=== PATIENT | female | born 1980 | race Caucasian/White ===

== ENCOUNTER → 2018-01-06 10:16 | Outpatient (CLI) | payer OTHER, SELFPAY ==
[2018-01-07 09:29] LABS: Vitamin D,25 Hydroxy 28.3 ng/mL (29.95-100.01)
[2018-01-09 09:30] LABS: HPV Reflexed? NOT INDICATED
== END ==
PROVIDERS: Visit Provider Obstetrics & Gynecology
DX: E55.9 Vitamin D deficiency, unspecified (principal); Z12.4 Encounter for screening for malignant neoplasm of cervix; Z12.72 Encounter for screening for malignant neoplasm of vagina
CPT/HCPCS: 36415; 82306; 88175; G0145

== ENCOUNTER → 2018-04-06 11:29 | Outpatient (CLI) | payer OTHER, SELFPAY ==
[2018-04-06 13:25] LABS: Vitamin D,25 Hydroxy 37.9 ng/mL (29.95-100.01)
== END ==
PROVIDERS: Visit Provider Obstetrics & Gynecology
DX: E55.9 Vitamin D deficiency, unspecified (principal)
CPT/HCPCS: 36415; 82306

== ENCOUNTER → 2019-01-06 | Outpatient (CLI) | payer OTHER, SELFPAY ==
[2017-07-29 15:21] VITALS: BMI 38.9
[2019-01-06 14:32] LABS: Chlamydia Trachomatis by PCR Negative (Negative); Neisserai gonorrhoeae by PCR Negative (Negative); Probe Check PASS; Sample Adequacy Control PASS; Specimen Processing Control PASS
== END | disposition home or self-care (01) ==
LOC: LABSPEC 11:53
PROVIDERS: Visit Provider Obstetrics & Gynecology
DX: Z32.01 Encounter for pregnancy test, result positive (principal); Z11.3 Encounter for screening for infections with a predominantly sexual mode of transmission
CPT/HCPCS: 87491; 87591

== ENCOUNTER → 2019-01-21 | Outpatient (CLI) | payer OTHER, SELFPAY ==
[2017-07-29 15:21] VITALS: BMI 38.9
[2019-01-21 12:25] LABS: Color, Urine Yellow (Yellow); Glucose, Dipstick Normal (Normal); Ketone-Dipstick 5 mg/dl (Negative); Leukocyte Esterase-Dipstick 500 /ul (Negative); Nitrite-Dipstick Positive (Negative); Occult Blood-Urine 10 /ul (Negative); Protein-Dipstick 15 mg/dl (Negative); Specific Gravity, Urine 1.025 (1.002-1.030); Urine Bilirubin Dipstick Negative (Negative); Urine Clarity Clear (Clear); Urine Urobilinogen Normal (Normal)
[2019-01-21 12:46] LABS: Absolute Lymphocyte Count 1.97 X10^3/ul (0.83-4.51); Absolute Neutrophil Count 6.9 X10^3/uL (2.0-7.7); Basophil# 0.03 X10^3/uL; Basophil% 0.3 % (0-1); Hematocrit 34.9 % (37-47); Hemoglobin 10.8 g/dl (12.0-15.0); Lymphocyte # 1.97 X10^3/ul (4.0); Lymphocyte % 20.2 % (19-41); Mean Corp Hgb Conc 30.9 g/gl (32-36); Mean Corpuscular Hgb 21.2 pg (27.0-32.0); Mean Corpuscular Volume 68.6 fL (81-99); Mean Platelet Vol. 10.7 fl (6.2-12.0); Monocyte# 0.67 X10^3/uL; Monocyte% 6.9 % (0-10); Neutrophil # 6.94 X10^3/uL (2.7-7.7); Neutrophil % 71.3 % (47-70); Platelet Count 304 K/mm3 (150-450); RBC Distribution Width CV 16.4 % (11.6-14.6); Red Blood Count 5.09 M/mm3 (4.2-5.4); White Blood Count 9.7 K/mm3 (4.4-11.0)
[2019-01-21 12:48] LABS: Differential Indicated SCAN CRITERIA MET; POSITIVE COUNT YES; POSITIVE DIFFERENTIAL NO; POSITIVE MORPHOLOGY YES
[2019-01-21 13:00] LABS: Thyroid Stim Hormone (TSH) 2.12 uIU/mL (0.358-3.74)
[2019-01-21 13:02] LABS: Amphetamine Urine VISTA NEGATIVE (<1000 ng/mL); Barbiturate Urine VISTA NEGATIVE (< 200 ng/mL); Benzodiazepine Urine VISTA NEGATIVE (< 200 ng/mL); Cocaine Urine VISTA NEGATIVE (< 300 ng/mL); Ecstacy Urine VISTA NEGATIVE (< 500 ng/mL); Methadone Urine VISTA NEGATIVE (< 300 ng/mL); PCP Urine VISTA NEGATIVE (< 25 ng/mL); THC Urine VISTA NEGATIVE (< 50 ng/mL); Vista UDS pH Range 5
[2019-01-21 13:09] LABS: COTININE Drug Screen Negative (<200 ng/mL)
[2019-01-21 13:31] LABS: Hypochromasia 1+; Microcytosis 2+
[2019-01-21 13:42] LABS: HIV - WCH Non-Reactive (Nonreactive); Rubella IgG > 500.0 IU/mL
[2019-01-22 01:45] LABS: Prenatal RPR NONREACTIVE (NONREACTIVE)
[2019-01-22 12:25] LABS: HEPATITIS B SURFACE AG Negative (Negative); Hep C Antibodies <0.1 s/co ratio (0.0-0.9)
== END | disposition home or self-care (01) ==
LOC: WOBLAB 11:11
PROVIDERS: Visit Provider Obstetrics & Gynecology
DX: Z34.81 Encounter for supervision of other normal pregnancy, first trimester (principal)
CPT/HCPCS: 36415; 80307; 81002; 84443; 85025; 86703; 86762; 86803; 87340

== ENCOUNTER 2019-01-23 10:26 | Emergency (ER) | payer OTHER, SELFPAY ==
[2019-01-23 10:27] VITALS: BP 138/73; PULSE 76; RESP 16; TEMP 36.7; O2SAT 97; BMI 38.4
--- NOTE | 2019-01-23 10:44 | VDLE_ITS ---
Reason For Study: RLE PAIN (CRAMPS) RIGHT GSV is normal. CFV is compressible, spontaneous, phasic, competent and demonstrates normal augmentation. FV is compressible, spontaneous, phasic, competent and demonstrates normal augmentation. POP V is compressible, spontaneous, phasic, competent and demonstrates normal augmentation. T/P Trunk is compressible. PTV is compressible. RT PerV is compressible. Procedure Exam performed portable in ED. The exam was diagnostic. A preliminary report was called and/or faxed to ED. Interpretation Summary Deep veins of the right lower extremity are patent and compressible segmentally. There is no evidence of right lower extremity deep vein thrombosis. Valvular competence appears intact within the proximal deep venous system on the right . The right greater saphenous vein appears patent and compressible segmentally. Ordering Physician: Luz Harman Referring Physician: NO PCP Performed By: Brenda Valentin, GISELE, RVT
--- NOTE | 2019-01-23 10:46 | ED.VISSUMM ---
- ER Visit Summary Date of Service: 01/23/19 Chief Complaint: Right leg cramps History of Present Illness: The patient is a 38 F presenting with right leg cramping. Patient states this started yesterday. She states she did wear shoes that were too big and she was trying to keep them on her feet all day. She does not believe this caused her symptoms. She denies any direct injury. No recent travel. No personal history of DVT. She does have a family history of an aunt having a DVT in the past. She is 8 weeks . Denies vaginal bleeding or abdominal pain. Denies chest pain or shortness of breath. Denies other complaints. Physical Examination: Vitals are stable. Patient is afebrile. Alert no acute distress. HEENT exam is unremarkable. Neck is supple. Lungs are clear and equal bilaterally. Heart is regular rate and rhythm. Abdomen is soft nontender nondistended. Extremities right calf tenderness. No swelling. No erythema or warmth. Normal distal pulses. Skin is warm and dry. No focal neurologic deficit. Remainder of exam is unremarkable. Emergency Department Course and Treatment: Venous Doppler right lower extremity shows no evidence of DVT. Patient was given Tylenol. 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 Advised return to ED if worsening complaints. Disposition: Discharge home Impression: Right leg cramp This note was generated with [employer] dictation software. It may contain incorrect words, spelling, and punctuation that were not noted in review of the chart prior to signing ED Disposition - Plan for ED Patient: Instructions: ED Muscle Pain Leg Cramps Referrals: Lon Howard MD [Primary Care Provider] -
[2019-01-23] MEDS: Acetaminophen 500 MG Tablet 1000 MG PO (11:08)
--- NOTE | 2019-01-23 12:37 | ED.DEP ---
ED Disposition - Plan for ED Patient: Instructions: ED Muscle Pain Leg Cramps Referrals: Lon Howard MD [Primary Care Provider] -
[2019-01-23 13:01] VITALS: BP 125/71; PULSE 67; RESP 18
== END 2019-01-23 13:03 | disposition home or self-care (01) ==
LOC: ED 11:22
PROVIDERS: Emergency Provider Emergency Medicine; Family Provider Obstetrics & Gynecology; PCP Obstetrics & Gynecology
DX: O26.891 Other specified pregnancy related conditions, first trimester (principal); R25.2 Cramp and spasm; M79.661 Pain in right lower leg; K21.9 Gastro-esophageal reflux disease without esophagitis; Z3A.08 8 weeks gestation of pregnancy; Z79.899 Other long term (current) drug therapy
CPT/HCPCS: 93971; 99282

== ENCOUNTER → 2019-06-16 | Outpatient (CLI) | payer OTHER, SELFPAY ==
[2019-06-16 10:53] LABS: Hematocrit 35.1 % (37-47); Hemoglobin 11.2 g/dL (12.0-15.0); Mean Corp Hgb Conc 31.9 g/dL (32-36); Mean Corpuscular Hgb 26.8 pg (27.0-32.0); Mean Platelet Vol. 9.5 fl (6.2-12.0); Platelet Count 173 K/mm3 (150-450); RBC Distribution Width CV 15.9 % (11.6-14.6); RBC Distribution Width SD 48.5 fl (35.1-43.9); Red Blood Count 4.18 M/mm3 (4.2-5.4); White Blood Count 8.2 K/mm3 (4.4-11.0)
[2019-06-16 10:54] LABS: Glucose Challenge Gest 1H 50g 96 mg/dL (70-140)
== END | disposition home or self-care (01) ==
LOC: WOBLAB 09:56
PROVIDERS: Visit Provider Advanced Practice Midwife
DX: Z34.83 Encounter for supervision of other normal pregnancy, third trimester (principal)
CPT/HCPCS: 36415; 82950; 85027

== ENCOUNTER 2019-08-30 05:35 | Inpatient (IN) | payer OTHER, SELFPAY ==
--- NOTE | 2019-08-29 18:46 | HP.PCM_ITS ---
History and Physical Date of Admission: 08/30/19 ACOG ANTEPARTUM RECORD - HISTORY AND PHYSICAL (08/29/2019) Name: GRANT HOFFMAN History of this : 38 yo [id number] presents at 39 weeks gestation for a repeat and tubal after 3 prior C-sections. OB Physician: RUTH 's Physician: Dr. Kalpana Fisher ...................................................................... : 1980 Age: 38 [address]: [address] [place] [address] Phone: (h) [phone] Insurance Carrier: [employer] [id number] Emergency Contact: CHARAN HOFFMAN [phone] ...................................................................... Final LESLI: 09/05/19 By Ultrasound: 11 weeks 3 days PARITY: (G-Total Pregnancies P-Fullterm,Premature,Induced AB,Spont AB, Ectopics, Multiple,Living) LESLI CONFIRMATION: By LMP: 11/29/18 Initial Exam: 09/05/19 By First Ultrasound Exam: 09/05/19 Final LESLI: 09/05/19 OB PROBLEM LIST: AMA ANEMIC Hgb 10.8 g/dl at NOB labs. Recommend ferrous sulfate 325 mg po bid. Heartburn, taking Omeprazole MSAFP and CF testing declined. cfDNA testing declined. Prior C/S x 3, plans repeat C/S STERILIZATION REQUEST Reviewed R,B,A, permanence Plan for BPS UTI at NOB labs + Nit + LE RX Keflex 500 mg po bid for 7 d ALLERGIES: No Known Allergies MEDICATIONS: ferrous sulfate 325 mg (65 mg iron) tablet daily omeprazole 20 mg capsule,delayed release daily Formula 28 mg iron-800 mcg tablet daily SOCIAL HISTORY: Smoking - Never Alcohol Use - denies drinking Diet - balanced Diet Lifestyle - low stress lifestyle and Exercise - minimal Employer - Home Job Description - Illicit Drug Use - denies use of street drugs Sexual Activity - Residence - Lives w/ and children Place of - [place], [place] Spouse-Sig Other Name - Charan Hoffman Spouse-Sig Other Occupation - director inbound sales [employer] Spouse-Sig Other Phone No - [phone] Children Name(s) - Cecelia Romero(Dr Agosto), Iman Renee (Dr Howard) PRIOR DELIVERY HISTORY DEL DATE GEST LAB WT LB WT OZ TYPE ANES LABOR TX Sep 06 6 0 0 0 Sab None No Mar 01 40 0 8 7 C-Sec Spinal No Aug 10 39 0 6 15 C-Sec Spinal No Feb 25 41 20 7 6 C-Sec Spinal No ANTEPARTUM FLOW CHART VISIT GE RTC FU F F MO U U DATE WK MD WKS HT PN HR M SS BP ED WT MO GL D EF ST __ ____ ___ __ __ ___ __ __ __ ___ __ __ __ ___ __ 02 Aug JMW 3 38 + + 122/72 sl 229 tr - Jul JMW 1 37 + + 130/80 sl 226 tr - Jul JMW 1 38 + + 132/72 sl 229 tr - Jul JMW 2 34 + + 136/82 sl 225 tr - Jun ELB 2 32 - + + 110/64 sl 224 tr - Jul 24 KW 2 30 + + 100/70 0 221 - - Jun 21 KW 2 29 + + 120/62 0 221 - - May 18 ELB 3 25 - + + 106/68 tr 217 - - Apr 13 ELB 4 - - U+ + 120/74 sl 216 tr - Mar 09 ELB 4 - - + + 120/70 0 211 - - Feb 02 DS 4 12 ? + O 128/64 0 211 30 December 29 JMW 4 on 104/70 210 - no ANTEPARTUM NOTE(S): Aug 26 2019: Pre-op forms signed for R/C-S, Good FM Aug 19 2019: feeling well. Cxs on and off. Aug 12 2019: Ctxs-occas, Good FM Jul 28 2019: Ctxs-occas, Good FM Jul 14 2019: feeling well. Jun 30 2019: feeling well. Jun 16 2019: feeling well. Glucola drawn today. May 21 2019: Apr 23 2019: comp u/s today, heartburn and on Omeprazole Mar 22 2019: feeling well. Feb 18 2019: see note Jan 21 2019: US OK COMPREHENSIVE ANTEPARTUM NOTE(S): Jun 30 2019: Feeling well; reports active FM; denies UCs, VB, LOF; having some back discomfort when rising in AM, discussed stretching exercises to help; concerned about no weight gain over last two visits, diet review good, discussed normal weight gain for her BMI and diet management; reviewed 1 hour glucose screening results; discussed warning signs, s/s PTL; RTO 2 weeks for PNV - KVW Jun 16 2019: Feeling well; reports active FM; denies UCs, VB, LOF; 1 hour Glucola and bloodwork drawn today; discussed warning signs, s/s PTL; RTO 2 weeks for PNV - KVW Jun 16 2019: Glucola 96 hgb 11.2 g/dl. EB May 21 2019: Glucola given UA neg for infection. Sp Gr 1.010 Reviewed s/sx of yeast, UTIs. Recommend maternity support belt for comfort. Encouraged tdaP and flu vaccine. EB May 21 2019: Grant gave clean catch midstream urine and long dip done. Entirely WNL with pH 6.5 and sg 1.010. States increased urinary frequency with pressure recently. Baby active. Minimal edema. Has multiple red raised ch on feet and ankles- mosquito bites and flea bites from her cats. GEORGETTE. Apr 23 2019: Grant is here with her for visit. Asking about when can get C/S scheduled. Usually at around 28 weeks. This can be scheduled at 1 week prior to EDC, likely 08/30/19. Plans sterilization with this C/S. This is a boy and they have 3 girls at home. She relates takes Fe daily for anemia and Omeprazole for heartburn. She can resume Vit D supplementation in winter months as she has been low before. LMT Apr 23 2019: 20 wk sono today: 54% pct Sex: Male 99% K EB Feb 18 2019: Grant is feeling much better in the past week re: nausea and less tired. Voicing no concerns. Feb 18 2019: Feeling well. No bleeding. labs normal. Declines cfDNA screening. Jan 21 2019: Grant is here for her NOB visit at 7 w 4 d, she is a A1 L3 with an LESLI of 09/05/2019. She and her , Charan, have three daughters at home. All of her girls were delivered by C/S, and she plans a R C/S at [facility], and will breastfeed. Past history updated. Office practice patterns reviewed, including labs that will be collected today. She will see Dr. Scott for a PNV after NOB visit. Grant states that she has experienced a little nausea, but as long as she eats often, and drinks plenty of water she does well and can manage the nausea. Reports that she has vomited once. Encouarged protein in her diet throughout the day and at least one gallon of water per 24 hrs. Emergencies/danger signs to report, round ligament pain, reporting s/s of a UTI, and common OTC medications approved/not approved for use during reviewed. She is a life long non-smoker, and denies use of drugs or ETOH. Genetic Screening form completed, BRYON is of note. She declines MSAFP and CF testing, consent signed as such. cfDNA testing offered and she declined. Grant takes an OTC vitamin and states that she tolerates this well. She states that she and her family eat generally well balanced, clean foods, and that she drinks a lot of water. Reviewed caloric needs, recommended weight agin, limiting empty calories, and limiting caffeine to one cup a day. Printed guide for food safety during provided with review. Grant walks and does yard work several times a week. Lifting restrictions reviewed. Kegel exercises discussed. Grant states that she understands all information provided during NOB visit, and she has no questions following same. AW New January 21 2019: O positive RI. Hgb 10.8 g/dl. IRON SUPPLEMENT recommended. EB Jan 06 2019: Grant is a 38 yr old Gr 5, P3, SAB 1 here for Missed Menses. Hx regular monthly periods; LMP 11/29/18 which would make her 5 wks 3 days, LESLI 09/05/19. She is . No spotting, No bleeding. GC/Chlamydia cultures obtained. No pap today. Using a topical steroid cream between her fingers for poison toni. Taking a daily vitamin, Vit D. Hx C/S x 3. informational materials given and reviewed otc meds ok to take. NO NSAIDS. kbm REVIEW OF SYSTEMS: GENERAL - Denies fever, or chills SKIN - Denies rash, new skin lesions, or change in moles EYES - Denies blurred vision, or change in visual acuity EARS - Denies ear pain, or difficulty hearing NOSE - Denies nasal congestion, discharge, or bleeding MOUTH - Denies sore throat, or difficulty swallowing NECK - Denies pain or swelling RESPIRATORY - Denies shortness of breath, cough, wheezing CARDIOVASCULAR - Denies palpitations, chest pain, orthopnea, PND, peripheral edema, syncope or claudication GASTROINTESTINAL - Denies nausea, vomiting, diarrhea, constipation, Denies abdominal pain, melena and or bright red blood GENITOURINARY - Denies dysuria, frequency of urination, urgency, or hesitancy MUSCULOSKELETAL - Denies joint or muscle pain, or back pain NEUROLOGICAL - Denies localized numbness, weakness, or tingling PSYCHIATRIC - Denies depression, anxiety, substance abuse or suicide attempts ENDOCRINE - Denies heat or cold intolerance, weight loss or gain, increasing thirst HEMATO-IMMUNOLOGIC - Denies easy bruising, bleeding, oral ulcerations or recurrent infections GENETICS SCREENING: Age 35+ years: Yes Thalassemia: No Neural Tube Defect: No Down Syndrome: No SERENITY-SACHS: No Sickle Cell Disease: No Hemophilia: No Musc. Dystrophy: No Cystic Fibrosis: No-declines screening Rosa Chorea: No Mental Retardation: No Fragile X: No Other genetic: No Other defects: No SABs/still births: No Drugs since LMP: No INFECTION HISTORY: High risk AIDS: No High risk Hepatitis: No Exposed to TB: No Exposed to Herpes: No Rash/viral illness since LMP: No History of STD: No MENSTRUAL HISTORY: *Menses Amount/Duration: 7 daysMenses Regularity: Regular* PAST SUMMARY: PARITY: 1. Total Pregnancies............ 5 2. Full Term Pregnancies........ 3 3. Premature.................... 0 4. Abortions - Induced.......... 0 5. Abortions - Spontaneous...... 1 6. Ectopics..................... 0 7. Multiple Births.............. 0 8. Living Children.............. 3 PAST #1: Date of :.................. 03/14/04 Gestation Weeks:................ 41 Length of labor(hours):......... 20 Sex:............................ F Weight-lbs:............... 7 Weight-oz:................ 6 Type of Delivery:............... C-Sect Type of Anesthesia:............. Spinal Place of Delivery:.............. [place] Treatment of Labor?:.... No Comment: IOL, ABRUPTION PAST #2: Date of :.................. 02/24/08 Gestation Weeks:................ 40 Length of labor(hours):......... 0 Sex:............................ F Weight-lbs:............... 8 Weight-oz:................ 7 Type of Delivery:............... C-Sect Type of Anesthesia:............. Spinal Place of Delivery:.............. [place] Treatment of Labor?:.... No Comment: PAST #3: Date of :.................. 08/25/12 Gestation Weeks:................ 6 Length of labor(hours):......... 0 Sex:............................ Weight-lbs:............... 0 Weight-oz:................ 0 Type of Delivery:............... Sab Type of Anesthesia:............. None Place of Delivery:.............. none Treatment of Labor?:.... No Comment: DATE APPROX, NO D+C PAST #4: Date of :.................. 08/05/17 Gestation Weeks:................ 39 Length of labor(hours):......... 0 Sex:............................ F Weight-lbs:............... 6 Weight-oz:................ 15 Type of Delivery:............... C-Sect Type of Anesthesia:............. Spinal Place of Delivery:.............. [place] Treatment of Labor?:.... No Comment: PHYSICAL EXAMINATION General Appearence: 38 yo female in no acute distress Vital Signs: AF, VSS Heart: RRR without rubs or gallops Lungs: CTA x 2 Breasts: deferred Abdomen: gravid Pelvis: Cervix: not examined Presentation: cephalic Station: not examined Fetus: Size: AGA Movement: present Heart: present Labs for : GRANT HOFFMAN since 12/09/2018 ORDER DATEIN DESCRIPTION VALUE UNITS RANGE A+ COMMENT GLUCOSE CHALLENGE GEST 1H 50G 06/16/19 NOTE Original Ordering Provider: MAY Bell GLU GEST 50G 1H 96 mg/dL 70-140 CBC-COMPLETE BLOOD CNT NO DIFF 06/16/19 NOTE Original Ordering Provider: MAY Bell WBC 8.2 K/mm3 4.4-11.0 RBC 4.18 M/mm3 4.2-5.4 L HGB 11.2 g/dL 12.0-15.0 L w HCT 35.1 % 37-47 L MCV 84.0 fL 81-99 MCH 26.8 pg 27.0-32.0 L MCHC 31.9 g/dL 32-36 L RDW CV 15.9 % 11.6-14.6 H RDW SD 48.5 fl 35.1-43.9 H PLT 173 K/mm3 150-450 MPV 9.5 fl 6.2-12.0 Reviewed by SALENA huertas HEPATITIS C ANTIBODIES 01/21/19 NOTE Original Ordering Provider: Meet Howard HEP C AB <0.1 s/co ratio 0.0-0.9 Negative: < 0.8 Indeterminate: 0.8 - 0.9 Positive: > 0.9 The CDC recommends that a positive HCV antibody result be followed up with a HCV Nucleic Acid Amplification test (911901). Reviewed by SALENA HEPATITIS B SURFACE AG 01/21/19 NOTE Original Ordering Provider: Meet Howard HB SURF AG Negative Negative Performed at: [address] [id number] Museum Tour Guide: Yovani Reese PhD, Phone: [phone] Reviewed by SALENA RPR 01/21/19 NOTE Original Ordering Provider: Meet Howard RPR NONREACTIVE NONREACTIVE Reviewed by SALENA HIV - [facility] 01/21/19 NOTE Original Ordering Provider: Meet Howard HIV - [facility] Non-Reactive Nonreactive Reviewed by SALENA RUBELLA IGG 01/21/19 NOTE Original Ordering Provider: Meet Howard RUBELLA IGG > 500.0 IU/mL Antibody results Interpretation of Immune Status < 5 IU/ml Presumed Non-immune 5 - < 10 IU/ml Equivocal > or = 10 IU/ml Presumed Immune Reviewed by SALENA T AND S-NO CHARGE W/PNP 01/21/19 Reason for Type AND Screen/Red Cells: Surgery? [facility]~[address] [place], [address]~ BLOOD TYPE GEL O POSITIVE N AB SCREEN GEL NEGATIVE N Reviewed by SALENA CBC W/DIFF, AUTOMATED 01/21/19 NOTE Original Ordering Provider: Meet Howard WBC 9.7 K/mm3 4.4-11.0 RBC 5.09 M/mm3 4.2-5.4 HGB 10.8 g/dl 12.0-15.0 L HCT 34.9 % 37-47 L MCV 68.6 fL 81-99 L MCH 21.2 pg 27.0-32.0 L MCHC 30.9 g/gl 32-36 L RDW CV 16.4 % 11.6-14.6 H RDW SD 40.0 fl 35.1-43.9 PLT 304 K/mm3 150-450 MPV 10.7 fl 6.2-12.0 NEUT% 71.3 % 47-70 H LY% 20.2 % 19-41 MONO% 6.9 % 0-10 EO% 1.0 % 0-5 BASO% 0.3 % 0-1 IM GRAN % 0.300 % 0.0-0.9 IG% - Immature Granulocytes (promyelocytes, myelocytes and metamyelocytes) > 1% indicates that a LEFT SHIFT is Present. ABSOLUTE NEUT 6.9 X10 3/uL 2.0-7.7 ABSOLUTE LYMPH 1.97 X10 3/ul 0.83-4.51 HYPOCHROMASIA 1+ MICROCYTES 2+ Reviewed by SALENA NICOTINE URINE DRUG SCREEN 01/21/19 NOTE Original Ordering Provider: Meet Howard TO BE CONFIRMED CONFIRMATORY TESTING FOR ALL POSITIVE URINE DRUG SCREEN RESULTS WILL ONLY BE SENT OUT UPON PHYSICIAN ORDER. The results of Urine Drug Screen methods provide only preliminary analytical test results. A more specific alternate chemical method must be used in order to obtain a confirmed analytical result. Gas chromatography/mass spectrometery (GC/MS) is the preferred confirmatory method. Clinical consideration and professional judgement should be applied to any drug of abuse test result, particularly when preliminary positive results are used. COT DRG SCREEN Negative <200 ng/mL Cotinine is the first-stage metabolite of Nicotine. Reviewed by SALENA URINE DRUG SCREEN (VISTA) 01/21/19 NOTE Original Ordering Provider: Meet Howard TO BE CONFIRMED CONFIRMATORY TESTING FOR ALL POSITIVE URINE DRUG SCREEN RESULTS WILL ONLY BE SENT OUT UPON PHYSICIAN ORDER. VISTA Urine Drug Screen methods provide only preliminary analytical test results. A more specific alternate chemical method must be used in order to obtain a confirmed analytical result. Gas chromatography/mass spectrometery (GC/MS) is the preferred confirmatory method. Clinical consideration and professional judgement should be applied to any drug of abuse test result, particularly when preliminary positive results are used. URINE TCA TESTING MUST BE ORDERED SEPARATELY. USE TEST MNEMONIC: [place] [facility] UDS PH 5 AMPHETAMINES NEGATIVE <1000 ng/mL BARBITIURATES NEGATIVE < 200 ng/mL BENZODIAZIPINE NEGATIVE < 200 ng/mL COCAINE NEGATIVE < 300 ng/mL ECSTACY NEGATIVE < 500 ng/mL METHADONE NEGATIVE < 300 ng/mL OPIATES NEGATIVE < 300 ng/mL PCP NEGATIVE < 25 ng/mL THC NEGATIVE < 50 ng/mL Reviewed by SALENA THYROID STIM HORMONE (TSH) 01/21/19 NOTE Original Ordering Provider: Meet Howard TSH 2.12 uIU/mL 0.358-3.74 Reviewed by SALENA URINALYSIS, ROUTINE (DIPSTICK) 01/21/19 NOTE Original Ordering Provider: Meet Howard COLOR Yellow Yellow CLARITY Clear Clear GLUCOSE, UR Normal mg/dl Normal BILIRUBIN URINE Negative mg/dL Negative KETONE UR 5 mg/dl Negative H SP.GR. DIPSTX 1.025 1.002-1.030 PH UR 6.0 5.0 - 8.0 PROT DIPSTX 15 mg/dl Negative H UROBILI Normal mg/dl Normal NITRITE UR Positive Negative H OCCULT BLOOD-UR 10 /ul Negative H LEUK ESTERASE 500 /ul Negative H Reviewed by SALENA MOORE/JUDY [facility] BY PCR 01/06/19 NOTE Original Ordering Provider: Meet Howard [facility] PCR Negative Negative NG BY PCR Negative Negative Reviewed by MEET Impression /Plan: 39 week intrauterine for repeat and tubal. Discussed RBAs and all questions answered. Preparations in progress for delivery.
[2019-08-30] VITALS (18 sets, daily range): BP systolic 95–134; BP diastolic 50–72; PULSE 61–92; RESP 16–18; TEMP 36.3–37.2; O2SAT 96–100; BMI 42.0
--- NOTE | 2019-08-30 | IMM_PTH ---
PATIENT: GRANT HOFFMAN LOC: WP U#:[id number] AGE/SX: 38/F ROOM: WP007 RE08/30/[address]: Dr. Tacos Scott MD : 1980 BED: 1 DIS: 09/01/2019 SPEC #: [id number] RECD: 08/31/19 12:50 STATUS: MARGA REFrances #: [id number] JANKI: 08/30/19 00:[address]: Tacos Scott DEPT: IMMUNOHISTOCHEMISTRY RECD BY: Nicole Coughlin Tissues: Uterus, NOS Procedures: Markel Ret (add) CEA (add) CK5-6 (add) COSTA (add) Vimentin (add) Pankeratin (initial) PHYSICIAN & INSTITUTION [place] [id number] SPECIMEN INFORMATION: Tissue Source: Uterine cysts Clinical Info: Inflammatory uterine cysts Specimen Number: [id number] #1 CPT code: 08561, 00205 x5 METHODOLOGY: Deparaffinized sections of prefer/formalin-fixed tissue or PAP/DQ stained slides are incubated with monoclonal/polyclonal antibodies/oligonucleotide probes. Localization is made via biotin free immunoperoxidase method. Appropriate controls are performed and reacted as expected. Results on target cell population are indicated in the following table: RESULTS: ANTIBODY / CLONE RESULT Block 1 AE1-3 (AE1/AE3/PCK26) positive Vimentin (V9) negative CALRET (polyclonal) positive CK5-6 (D5 & 1684) positive COSTA (E29) positive CEA (11-7/TF-3HB-1) negative These tests were developed and their performance characteristics determined by [facility]. They may not have been cleared or approved by the U.S. Food and Drug Administration. The FDA has determined that such clearance or approval is not necessary. The above immunohistochemical/dualISH markers are ordered and reviewed by the Pathologist. INTERPRETATION: Uterine cysts, excision: Consistent with benign mesothelial inclusion cyst. AM:raisa 09/01/19
[2019-08-30] MEDS: Lactated Ringers 1,000 ML 999 ML IV (06:00)
[2019-08-30 06:28] LABS: Absolute Lymphocyte Count 2.18 X10^3/uL (0.83-4.51); Absolute Neutrophil Count 6.1 X10^3/uL (2.0-7.7); Basophil# 0.04 X10^3/uL; Basophil% 0.4 % (0-1); Eosinophil# 0.12 X10^3/uL; Eosinophils% 1.3 % (0-5); Hematocrit 34.1 % (37-47); Hemoglobin 11.3 g/dL (12.0-15.0); Lymphocyte # 2.18 X10^3/ul (4.0); Lymphocyte % 23.8 % (19-41); Mean Corp Hgb Conc 33.1 g/dL (32-36); Mean Corpuscular Hgb 26.7 pg (27.0-32.0); Mean Corpuscular Volume 80.6 fL (81-99); Mean Platelet Vol. 10.2 fl (6.2-12.0); Monocyte# 0.67 X10^3/uL; Monocyte% 7.3 % (0-10); NRBC Flagged by Analyzer 0 % (0-5); Neutrophil # 6.08 X10^3/uL (2.7-7.7); Neutrophil % 66.3 % (47-70); Platelet Count 184 K/mm3 (150-450); RBC Distribution Width CV 14.6 % (11.6-14.6); RBC Distribution Width SD 42.2 fl (35.1-43.9); Red Blood Count 4.23 M/mm3 (4.2-5.4); White Blood Count 9.2 K/mm3 (4.4-11.0)
[2019-08-30] MEDS: Sodium Citrate/Citric Acid 30 ML UDC PO (06:59)
[2019-08-30] MEDS: Lactated Ringers 1,000 ML 150 ML IV (07:01)
[2019-08-30] MEDS: Cefazolin 2 GM in 0.9% Normal Saline 100 ML IV (07:19)
--- NOTE | 2019-08-30 07:24 | PCM.OPRPT ---
Delivery Classification: Scheduled Final LESLI: 09/05/19 Final LESLI Source: US <20 weeks Gestational age: 39 Weeks and 1 Days classified advertising manager: Roberta Garibay Type of Anesthesia:: Spinal - With Duramorph Implants Used: None Date of Procedure: 08/30/19 Pre-Operative Diagnosis: Prior Section, Desires Permanent Sterilization Post-Operative Diagnosis: Prior Section, Desires Permanent Sterilization, Inflammatory Cysts Indications: Prior Section and Desires Permanent Sterilization Description of Procedure: Surgeon: Tacos Scott MD, FACOG Anesthesia: Naomi Del Castillo CRNA Procedure: Repeat Low Transverse Cervical Caesarean Section, Bilateral Tubal Occlusion with Filshie Clips, Excision of Ovarian Inflammatory Cysts Indication: This is a 38-year-old who presents for her fourth at 39+ weeks gestation. care has otherwise been uneventful. The patient has been counseled regarding the risk and indications of this procedure including the possibility of bleeding infection and injury to surrounding structures such as bowel bladder. She also desires permanent sterilization and has considered this form of control for quite some time. She has been counseled regarding the permanent nature of the procedure, the failure rate of 1 to 2%, and the availability of other nonpermanent control options. All questions were answered. Procedure: Patient was taken to the operating room where after spinal anesthesia was placed, the patient was prepped and draped in usual sterile fashion and a Tena catheter was placed. The abdomen was entered through the patient's prior Pfannenstiel incision and peritoneum was entered bluntly. After developing a bladder flap on the lower uterine segment a low transverse incision was made on the uterus and head was easily delivered onto the operative field the nose mouth and oropharynx were bulb suctioned. Subsequently a viable male was born with Apgars of 9/9. The infant was noted to cry move all extremities vigorously on the operative field. The umbilical cord was doubly clamped and ligated and handed to the nursery personnel who were present for the delivery. Placenta was delivered and noted to be 3 vessels and normal with a true knot in the cord. Uterus was exteriorized and remaining placental tissue was removed. The uterus was then closed in 2 layers first with running locked 0 Vicryl suture followed by a second imbricating layer with 0 Vicryl suture. 0 Vicryl suture was then used in a horizontal mattress interrupted fashion to affect final hemostasis of the uterine incision line. Normal fallopian tubes and ovaries were visualized and Filshie clips were placed approximately 2 cm from the uterine fundus on each tube. Three 1 to 2 cm inflammatory cysts were noted on the fundus of the uterus and these were excised by ligating the bases with 0 Vicryl suture and using cautery. The uterus was returned to the pelvis. Hemostasis was noted and rectus abdominis muscles were reapproximated in the midline with interrupted Number 0 Vicryl suture in a horizontal mattress fashion. Fascia was closed with running Number 1 PDS Strata fix suture. Subcutaneous tissue was irrigated with copious amounts of saline solution and then closed with running 3-0 Vicryl suture. Skin was closed with 4-0 monocryl suture in a running subcuticular fashion. Steri strips and Mepilex were placed across the incision. The patient tolerated the procedure well and was taken to the recovery room in satisfactory condition. Sponge, needle, and instrument counts were all reportedly correct. EBL was less than 500 cc. Ancef 2 gms IV was given prior to the procedure. Spicemen to Pathology: Inflammatory uterine cysts Complications: None Amniotic Fluid Description: Clear Placenta Disposition: [facility] Specimen(s) sent to pathology: Inflammatory uterine cysts Drain: Tena to straight drain Fluids Replaced: Crystalloid Cord Entanglement: None, True Knot(s) - x 1 Cord Vessel Description: 3 Vessels Esitmated Blood Loss (ml): 500 cc Infant Gender: Male (1 minute): 9 (5 minute): 9 Antibiotic Given: Ancef 2 grams IV x1 Pt instructed on risks of surgery: Bleeding, Infection, Permanency, Failure Rate of 1 to 2%, Injury to surrounding structure(s) including bowel and bladder, Availability of other non-permanent control options Complications: None - Admit VTE Documentation VTE Present on Admission: Yes VTE Mechan Device Prophylaxis: SCD's VTE Pharm Prophylaxis ordered?: Yes
--- NOTE | 2019-08-30 07:26 | DCINST_ITS ---
Discharge Diet: No Restrictions Discharge Activity: May not drive while taking narcotic pain medications., May Shower, May Take a Tub Bath May resume sexual activity in: 4-6 weeks Lifting Restrictions: 20 pounds Additional Activity Instructions:: Nothing in the vagina for 4-6 weeks. You may return to work/school in 6 weeks. Call your doctor if your incision/area has: Continuous Slow Oozing, Sudden Increased Bleeding, Increased Pain/ Swelling, Increased Redness, Foul Smelling Discharge Call your doctor if you observe: Fever of 101 or Higher, Inability to urinate, Inability to have a bowel movement, Using more than one pad per hour Additional Instructions: If you experience any of the following, contact your healthcare provider. * Bleeding that soaks a pad every hour for 2 hours * Unrelieved incision or abdominal pain * Swelling, redness, discharge or bleeding from your incision or episiotomy site * Your incision begins to separate * Problems urinating (including inability to urinate or burning while urinating). * Visual changes * Severe headache * Flu-like symptoms * Pain or redness in one of both of your breasts * Pain, warmth, tenderness or swelling in your legs, especially the calf area * Frequent nausea and vomiting * Symptoms of depression or anxiety If you experience any of the following, call 911 or go to the nearest Emergency Room. * Chest pain * Problems breathing * Seizure activity * Partial or complete paralysis of a body part, slurred speech, weakness or drooping of the face, or a sudden inability to walk or hold your balance Allergies/Adverse Reactions: Allergies No Known Allergies Allergy (Verified 01/23/19 10:27) Medications to take at Discharge Esomeprazole Mag Trihydrate [Nexium] 40 mg PO DAILY 07/29/17 Ferrous Sulfate 325 mg PO BID 07/29/17 Vits [Prenatabs FA ] 1 tablet PO DAILY 07/29/17 Cephalexin [Keflex] 500 mg PO BID 01/23/19 Zinc 50 mg PO DAILY 01/23/19 Docusate Sodium [Colace] 100 mg PO BID PRN PRN #60 cap 08/30/19 Oxycodone [Oxyir] 5 mg PO Q6H PRN PRN 7 Days #20 tablet 08/30/19 The following prescriptions were given: Docusate Sodium [Colace] 100 mg PO BID PRN PRN #60 cap PRN Reason: Constipation Transmission Status: Pending to [facility] Oxycodone [Oxyir] 5 mg PO Q6H PRN PRN 7 Days #20 tablet PRN Reason: Pain Score 6-10/10 Transmission Status: Sent to [facility] Follow-Up: Call to make an appointment with your doctor for an incision check in 1-2 weeks. You will also need a 6 week post- follow up appointment. Test results from this visit will be discussed in further detail at your follow- up appointment, if applicable. Please Follow Up With: Tacos Scott MD - [phone] When: Call to make an appointment for an incision check in 2 weeks. Primary Care Physician: WINSTON ISABEL [Other]
--- NOTE | 2019-08-30 08:47 | UT_PTH ---
PATIENT: GRANT HOFFMAN LOC: [facility] U#:[id number] AGE/SX: 38/F ROOM: WP007 RE08/30/[address]: Dr. Tacos Scott MD : 1980 BED: 1 DIS: 09/01/2019 SPEC #: [id number] RECD: 08/30/19 09:44 STATUS: MARGA GLEZFrances #: [id number] JANKI: 08/30/19 08:[address]: Tacos Scott DEPT: SURGICAL PATHOLOGY RECD BY: Lico Rose Tissues: Uterus, NOS Procedures: Surgery Specimen Level V HEADER OPERATION: Excision PRE-OP DIAGNOSIS: Uterine inflammatory cysts, rule out endometriosis TISSUE SUBMITTED: Tissue, fundus of uterus appears to be inflammatory cysts MICROSCOPIC DIAGNOSIS Uterine cyst, excision: Consistent with benign mesothelial inclusion cyst. See comment. AM:raisa 08/31/19 COMMENT Immunohistochemistry ([id number]) supports the above diagnosis. MICROSCOPIC DESCRIPTION Slides are reviewed. GROSS DESCRIPTION Received in fixative is one container labeled with the patient's name and designated inflammatory uterine cyst. The specimen consists of two polypoid and discoid fragments of martinez tissue. The smaller fragment measures 1.5 x 1.5 x 0.2 cm. The larger fragment measures 2.2 x 1.5 x 0.4 cm. Both fragments are serially sectioned and submitted separately in two cassettes as follows: 1 - smaller fragment, 2 - larger fragment. / AM:raisa 08/30/19 TC:1 CPT: 20915
[2019-08-30] MEDS: Oxytocin 30 units/NS 500 ml 30 UNITS/500 ML IV.SOLN 167 UNITS IV (09:00)
[2019-08-30 09:41] LABS: Pathology Specimen OB SEE PATHOLOGY REPORT
[2019-08-30] MEDS: Lactated Ringers 1,000 ML 100 ML IV ×2 (12:05→20:55)
[2019-08-30] MEDS: Ondansetron 4 MG/2 ML Vial IV (12:13)
[2019-08-30] MEDS: proCHLORPERazine 10 MG/2 ML Vial IV (14:41)
[2019-08-30] MEDS: Ketorolac 30 MG/ML Syringe IV ×2 (14:50→20:54)
[2019-08-30] MEDS: Cefazolin 1 GM/50 ML BAG IV ×2 (16:07→22:11)
[2019-08-30] MEDS: Enoxaparin 40 MG/0.4 ML Syringe SC (22:11)
[2019-08-31] VITALS (7 sets, daily range): BP systolic 94–119; BP diastolic 43–72; PULSE 61–92; RESP 14–18; TEMP 36.7–37.4; O2SAT 95–99
[2019-08-31] MEDS: Ketorolac 30 MG/ML Syringe IV ×2 (02:35→08:44)
[2019-08-31 05:07] LABS: Hematocrit 29.3 % (37-47); Hemoglobin 9.2 g/dL (12.0-15.0); Mean Corp Hgb Conc 31.4 g/dL (32-36); Mean Corpuscular Hgb 25.9 pg (27.0-32.0); Mean Corpuscular Volume 82.5 fL (81-99); Mean Platelet Vol. 10.2 fl (6.2-12.0); Platelet Count 155 K/mm3 (150-450); RBC Distribution Width CV 14.9 % (11.6-14.6); RBC Distribution Width SD 43.9 fl (35.1-43.9); Red Blood Count 3.55 M/mm3 (4.2-5.4); White Blood Count 10.2 K/mm3 (4.4-11.0)
[2019-08-31] MEDS: 0.9% Saline Lock 10 ML Syringe IV (08:45)
--- NOTE | 2019-08-31 08:49 | PN.OBGYN_ITS ---
Subjective: Feeling well with minimal cramping. son. Likes abdominal binder. +Flatus. Wants to stay full 3 days Objective: VSS. Fundus u/1. Incision old drainage circles, no new drainage, intact, no s/s of infection. Hg back to 9's. Previously on Iron BID, will continue with RX of discharge. Abdominal binder on. IV pain medication continues. - Physical Exam Vitals/I&O's: Vital Signs Temp Pulse Resp BP Pulse Ox 98.4 F 92 18 94/46 L 97 08/31/19 04:45 08/31/19 06:00 08/31/19 06:00 08/31/19 04:45 08/31/19 06:00 Oxygen Delivery Method Room Air Weight: 104.1 kg Body Mass Index (BMI) 42.0 Intake and Output for Last 24 Hours 08/29/19 08/30/19 08/31/19 23:59 23:59 23:59 Intake Total 3630.00 / 3630.00 623.33 / 623.33 Output Total 1500 / 1500 1225 / 1225 Balance 2130.00 / 2130.00 -601.67 / -601.67 General: Alert, Oriented x3, Cooperative HEENT: Atraumatic, PERRLA, EOMI, Normocephalic Neck: Supple, No JVD, Negative Carotid Bruits Lungs: Clear to auscultation, Normal air movement Cardiovascular: Regular rate, No murmurs Abdomen: Bowel Sounds Present, Soft, Non Tender, Passing Flatus, - - fundus u/1, incision Extremities: No edema, Capillary Refill Less than 3 Seconds Skin: No rashes, No breakdown, Incision - Musculoskeletal: No Tenderness to Palpation of Joints or Extremities Neurological: Cranial nerves II-XII grossly intact Psych/Mental Status: Normal Affect, Appropriate Laboratory Results 08/31/19 04:40: WBC 10.2, RBC 3.55 L, Hgb 9.2 L, Hct 29.3 L, MCV 82.5, MCH 25.9 L, MCHC 31.4 L, RDW Std Deviation 43.9, RDW Coeff of Matilde 14.9 H, Plt Count 155, MPV 10.2 Current Medications Acetaminophen (Tylenol) 1,000 mg PO Q8H PRN PRN Reason: Pain Score 1-3/10 Bisacodyl (Dulcolax) 10 mg RECTAL UD PRN PRN Reason: If no BM Enoxaparin Sodium (Lovenox) 40 mg SC DAILY@2200 [facility] Last Admin: 08/30/19 22:11 Dose: 40 mg Documented by: Hydrocortisone (Hytone) 1 applic TOPICAL TID PRN PRN; Protocol PRN Reason: Discomfort Naloxone HCl 4 mg/ Dextrose 504 mls @ 0 mls/hr IV .Q0M PRN; Protocol PRN Reason: Respiratory depression Ibuprofen (Motrin) 600 mg PO Q6H PRN PRN PRN Reason: Pain Score 1-3/10 Ketorolac Tromethamine (Toradol) 30 mg IV Q6H [facility] Stop: 09/01/19 07:31 Last Admin: 08/31/19 08:44 Dose: 30 mg Documented by: Methylergonovine Maleate (Methergine) 0.2 mg IM X1 PRN PRN Reason: Uterine Atony Nalbuphine HCl (Nubain) 5 mg IV Q3H PRN PRN PRN Reason: ITCHING Stop: 08/31/19 09:05 Naloxone HCl (Narcan) 0.02 mg IV Q1M PRN PRN Reason: RR <10 and pt unresponsive Ondansetron HCl (Zofran) 4 mg IV Q4H PRN PRN PRN Reason: Nausea Last Admin: 08/30/19 12:13 Dose: 4 mg Documented by: Oxycodone HCl (Oxyir) 5 - 10 mg PO Q4H PRN PRN PRN Reason: Pain Score 4-10/10 Pantoprazole Sodium (Protonix) 40 mg PO DAILY [facility] Last Admin: 08/30/19 10:00 Dose: Not Given Documented by: Prochlorperazine Edisylate (Compazine Iv) 10 mg IV Q6H PRN PRN PRN Reason: NAUSEA Last Admin: 08/30/19 14:41 Dose: 10 mg Documented by: Senna/Docusate Sodium (Senokot-S, Kassandra-Colace) 0 tablet PO DAILY PRN PRN Reason: Constipation Simethicone (Mylicon) 80 mg PO PCHS PRN PRN Reason: Indigestion/stomach pain Sodium Chloride () 5 - 15 ml IV UD PRN PRN Reason: SALINE FLUSH Last Admin: 08/31/19 08:45 Dose: 10 ml Documented by: Medical Necessity - Tobacco Use Smoking Status: Never smoker Assessment/Plan A: Post-op day #1 Fundus u/1 Incision intact, with no s/s of infection male VSS Hx of anemia, Hg back to 9s post-op Abdominal binder on IV Toradol continues per post-op orders P: Continue normal post-op orders To switch to oral pain medication overnight Encouraged to ambulate and wear abdominal binder support as needed To continue stool softener until first BM and while taking narcotics Continue Iron PP with Rx sent Plans to stay full 3 days until discharge
[2019-08-31] MEDS: Pantoprazole Sodium 40 MG Tablet PO (10:23)
[2019-08-31] MEDS: Ibuprofen 600 MG Tablet PO ×2 (15:43→21:43)
[2019-08-31] MEDS: Acetaminophen 500 MG Tablet 1000 MG PO (18:31)
[2019-08-31] MEDS: Enoxaparin 40 MG/0.4 ML Syringe SC (21:39)
[2019-09-01 02:30] VITALS: BP 103/62; PULSE 75; RESP 14; TEMP 36.6
[2019-09-01] MEDS: Acetaminophen 500 MG Tablet 1000 MG PO ×2 (02:40→12:54)
[2019-09-01] MEDS: Ibuprofen 600 MG Tablet PO ×2 (03:45→09:27)
[2019-09-01 08:25] VITALS: BP 126/82; PULSE 85; RESP 16; TEMP 36.7; O2SAT 98
[2019-09-01] MEDS: Pantoprazole Sodium 40 MG Tablet PO (09:27)
[2019-09-01 12:00] VITALS: BP 142/82; PULSE 88; RESP 16; TEMP 36.8; O2SAT 100
[2019-09-01] MEDS: Senna/Docusate Sodium 1 Tablet PO (12:53)
--- NOTE | 2019-09-01 23:17 | PN.OBGYN_ITS ---
Subjective: This is a late entry for 09/01/2019 0800 Pain well controlled, tolerating diet, passing flatus, ambulating well, well; desires discharge home today; spouse bedside and supportive Objective: AVSS Breasts filling, nipples atraumatic Fundus firm, midline, u/1, lochia small LTCS incision [employer], well approximated, C/D/I, no drainage, edema, erythema or ecchymosis noted - Physical Exam Vitals/I&O's: Vital Signs Temp Pulse Resp BP Pulse Ox 98.2 F 88 16 142/82 H 100 09/01/19 12:00 09/01/19 12:00 09/01/19 12:00 09/01/19 12:00 09/01/19 12:00 Oxygen Delivery Method Room Air Weight: 229 lb 8.019 oz Body Mass Index (BMI) 42.0 Intake and Output for Last 24 Hours 08/30/19 08/31/19 09/01/19 23:59 23:59 23:59 Intake Total 3630.00 / 3630.00 623.33 / 623.33 200 / 200 Output Total 1500 / 1500 3175 / 3175 Balance 2130.00 / 2130.00 -2551.67 / -2551.67 200 / 200 General: Alert, Oriented x3, Cooperative, No apparent distress HEENT: PERRLA, EOMI Oral: Moist Mucosa Neck: Supple Lungs: Clear to auscultation, Normal air movement Cardiovascular: Regular rate, Regular Rhythm Abdomen: Bowel Sounds Present, Soft, Non Tender, Non-Distended, Passing Flatus Extremities: Capillary Refill Less than 3 Seconds, No Calf Tenderness - 2+ non pitting bilateral pedal, Edema Musculoskeletal: No Tenderness to Palpation of Joints or Extremities Lymphatic: No Cervical, Supraclavicular, or Inguinal Adenopathy Neurological: Cranial nerves II-XII grossly intact, Deep Tendon Reflexes 2+/4 and Symmetrical, Neuro grossly intact Psych/Mental Status: Normal Affect, Appropriate, Alert and oriented to time, place, person, mood and affect Medical Necessity - Tobacco Use Smoking Status: Never smoker Assessment/Plan Assessment: 38yo G5 now [id number] delivered at 39w1d gestation via R/CS Postoperative/ day #2, normal involution, normal postoperative/ course Mild anemia Plan: Discharge teaching completed Discharge home today Continue iron supplementation as previously prescribed RTO 2 weeks for incision check, 6 weeks for checkup
== END 2019-09-01 13:10 | disposition home or self-care (01) | DRG 785 ==
PROVIDERS: Admitting Provider Obstetrics & Gynecology; Referring Provider Obstetrics & Gynecology; Visit Provider Obstetrics & Gynecology
PROC: 10D00Z1 Extraction of Products of Conception, Low, Open Approach (ICD-10-PCS; CPT 59514; principal; 2019-08-30 07:15)
DX: O34.211 Maternal care for low transverse scar from previous cesarean delivery (principal); Z30.2 Encounter for sterilization; Z3A.39 39 weeks gestation of pregnancy; Z37.0 Single live birth; O69.2XX0 Labor and delivery complicated by other cord entanglement, with compression, not applicable or unspecified; N85.8 Other specified noninflammatory disorders of uterus
CPT/HCPCS: 85025; 85027; 86850; 86900; 86901; 88307; 88341; 88342; 94762; 99218; 99251; J7120; A4216; G0378; G0463; J2405

== ENCOUNTER → 2019-10-14 17:30 | Outpatient (CLI) | payer OTHER, SELFPAY ==
[2019-08-30 05:51] VITALS: BMI 42.0
[2019-10-19 16:47] LABS: HPV Reflexed? NOT INDICATED
== END ==
PROVIDERS: Referring Provider Obstetrics & Gynecology; Visit Provider Obstetrics & Gynecology
DX: Z12.4 Encounter for screening for malignant neoplasm of cervix (principal)
CPT/HCPCS: 88175; G0145